=== PATIENT | male | born 1965 | race Caucasian/White ===

== ENCOUNTER 2017-12-07 13:23 | Emergency (ER) | payer OTHER ==
[~2017-12-07] VITALS: Ht 190.5 cm; Wt 90.7 kg
[2017-12-07 13:50] LABS: BASOPHILS ABSOLUTE AUTO 0.06 K/mm3 (0.00-0.23); BASOPHILS PERCENT AUTO 1 % (0-2); EOSINOPHILS ABSOLUTE AUTO 0.16 K/mm3 (0.00-0.68); EOSINOPHILS PERCENT AUTO 3 % (0-6); Hemoglobin 16.1 g/dL (13.5-17.5); IMMATURE GRAN ABSOLUTE AUTO 0.02 K/mm3 (0.00-0.10); IMMATURE GRAN PERCENT AUTO 0 % (0-1); LYMPHOCYTES ABSOLUTE AUTO 2.65 K/mm3 (0.84-5.20); LYMPHOCYTES PERCENT AUTO 42 % (21-46); MONOCYTES ABSOLUTE AUTO 0.55 K/mm3 (0.16-1.47); MONOCYTES PERCENT AUTO 9 % (4-13); Mean Corpuscular HGB 30.1 pg (26.0-34.0); Mean Corpuscular HGB Conc 33.5 g/dL (31.5-36.5); Mean Corpuscular Volume 90 fL (80-100); Mean Platelet Volume 8.9 fL (9.1-12.4); NEUTROPHILS ABSOLUTE AUTO 2.89 K/mm3 (1.96-9.15); NEUTROPHILS PERCENT AUTO 46 % (41-73); Platelet Count 268 K/mm3 (150-400); RDW Coefficient Variation 11.9 % (11.7-14.2); RDW Standard Deviation 38.5 fL (35.1-46.3); Red Blood Cell Count 5.34 M/mm3 (4.30-5.90); White Blood Cell Count 6.33 K/mm3 (4.00-11.30)
[2017-12-07 14:08] LABS: Alanine Aminotransfer (ALT/SGP 50 U/L (12-78); Albumin/Globulin Ratio 1.1 (0.8-1.8); Alk Phos 89 U/L (50-136); Anion Gap 8 mmol/L (6-16); Aspartate Aminotrans (AST/SGOT 23 U/L (12-37); Bilirubin, Total 0.3 mg/dL (0.1-1.0); Blood Urea Nitrogen 10 mg/dL (8-24); Bun/Creatinine Ratio 10.5 (12.0-20.0); CO2, Blood 26 mmol/L (21-32); Calcium, Blood 8.8 mg/dL (8.5-10.1); Chloride, Blood 108 mmol/L (98-108); Creatinine, Blood 0.95 mg/dL (0.60-1.20); Globulin, Blood 3.6 g/dL (2.2-4.0); Glomerular Filtration Rate >60 (60-); Glucose, Blood 118 mg/dL (70-99); Sodium, Blood 142 mmol/L (136-145); Total Protein, Blood 7.6 g/dL (6.4-8.2); Troponin I <0.015 ng/mL (0.000-0.040)
[2017-12-07 14:48] LABS: Source, Urine Clean Catch
[2017-12-07 14:51] LABS: Appearance, Urine Clear (Clear); Bilirubin, Urine Neg (Neg); Blood, Urine 1+ (Neg); Color, Urine Yellow (P-Yellow); Glucose Qualitative, Urine Neg (Neg); Ketones, Urine Neg (Neg); Leukocyte Esterase, Urine Neg (Neg); Nitrite, Urine Neg (Neg); Protein, Urine Neg (Neg); Urobilinogen, Urine NORM (Normal)
[2017-12-07 15:05] LABS: Bacteria Few /hpf; Red Blood Cells, Urine 0-2 /hpf (0-2); Squamous Epithelial Cells Not Seen /hpf (Few); White Blood Cells, Urine 0-2 /hpf (0-5)
[2017-12-07] MEDS ORDERED: BUDE6HFA INH ×2 (15:07→15:19)
[2017-12-07] MEDS ORDERED: ALBU90OI61 INH (15:08)
[2017-12-07] MEDS ORDERED: CLARITIN-D 121 EACH PO (15:08)
[2017-12-07] MEDS ORDERED: ALBU90OI INH (15:19)
== END 2017-12-07 16:34 | disposition home or self-care (01) ==
LOC: ER 13:23
PROVIDERS: Emergency Medicine
DX: R07.9 Chest pain, unspecified (principal); J44.1 Chronic obstructive pulmonary disease with (acute) exacerbation; F17.200 Nicotine dependence, unspecified, uncomplicated; Z88.5 Allergy status to narcotic agent; Z79.899 Other long term (current) drug therapy
CPT/HCPCS: 71046; 80053; 81001; 84484; 85025; 93005; 93010; 94640; 99284; J3301

== ENCOUNTER 2018-02-11 09:57 | Day surgery (SDC) | payer OTHER ==
[~2018-02-11] VITALS: Ht 188 cm; Wt 82.8 kg
[~2018-02-11 09:57] MED LIST: ALBU90OI INH; ALBU90OI61 INH; AMIT10 PO; BUDE6HFA INH; CENTRUM MEN'S1 EACH PO; CLARITIN-D 121 EACH PO; DEXL60CA3 PO; MONT10T PO; Symbicort 16010.2 GM INH; VALA500 PO
== END 2018-02-11 13:33 | disposition home or self-care (01) ==
LOC: ORSCSDS 09:57
PROVIDERS: Student in an Organized Health Care Education/Training Program
PROC: 0DB58ZX Excision of Esophagus, Via Natural or Artificial Opening Endoscopic, Diagnostic (ICD-10-PCS; principal; 2018-02-11 11:15)
PROC: 0DBL8ZX Excision of Transverse Colon, Via Natural or Artificial Opening Endoscopic, Diagnostic (ICD-10-PCS; principal; 2018-02-11 11:15)
PROC: 0DB98ZX Excision of Duodenum, Via Natural or Artificial Opening Endoscopic, Diagnostic (ICD-10-PCS; principal; 2018-02-11 11:15)
PROC: 0DB68ZX Excision of Stomach, Via Natural or Artificial Opening Endoscopic, Diagnostic (ICD-10-PCS; principal; 2018-02-11 11:15)
PROC: 0DBP8ZX Excision of Rectum, Via Natural or Artificial Opening Endoscopic, Diagnostic (ICD-10-PCS; principal; 2018-02-11 11:15)
DX: K21.9 Gastro-esophageal reflux disease without esophagitis (principal); K22.70 Barrett's esophagus without dysplasia; K29.80 Duodenitis without bleeding; Z80.0 Family history of malignant neoplasm of digestive organs; Z12.11 Encounter for screening for malignant neoplasm of colon; Z86.010 Personal history of colon polyps; D12.3 Benign neoplasm of transverse colon; K62.1 Rectal polyp; J44.9 Chronic obstructive pulmonary disease, unspecified; F17.210 Nicotine dependence, cigarettes, uncomplicated; Z79.899 Other long term (current) drug therapy
CPT/HCPCS: J7120

== ENCOUNTER 2018-08-12 06:47 | Day surgery (SDC) | payer OTHER ==
[~2018-08-12] VITALS: Ht 188 cm; Wt 88.2 kg
[~2018-08-12 06:47] MED LIST changes: +Alaway10 ML BOTHEYES; +Omeprazole20 M1 PO
--- NOTE | 2018-08-12 09:00 | NUR ---
08/12/18 0900 Miriam Blue 0821- HAD TO CHANGE SCOPE BECAUSE IT WAS NOT FUNCTIONING PROPERLY. PT STARTED VOMITING EMESIS AND HAD THICK SECRETIONS. SUCTION WAS USED AND OXYGEN WAS TURNED UP. PT O2 SATS DROPPED TO 86%. HE CONTINUED TO COUGH AND A BAG MASK WAS APPLIED. MEDICATION WAS STOPPED AT 0821 BUT PT WAS GIVEN ROBINOL AND ONDANSETRON ORDERED, SEE RECORD. ADDITIONAL HELP WAS IN THE ROOM, TAY QUICK AXA. PT O2 SATS AT BASELINE WERE 97-98%, HE WAS REMAINING AT 91-92% ON ROOM AIR, HIS O2 SATS WITH BAG MASK WERE 94-95%. DR US WANTED TO PROCEED WITH UPPER ENDOSCOPY, DR ANTOINE WAS CALLED IN TO REVIEW THE CASE. HE SAID FOR PT SAFETY WE SHOULD NOT PROCEED WITH THE CASE. PT WANTED TO PROCEED WITH COLONOSCOPY BUT DUE TO DR ANTOINE'S RECOMMENDATION NO SEDATION WAS GIVEN, PT CONSENTED TO PROCEED WITH COLONOSCOPY.
--- NOTE | 2018-08-12 11:09 | NUR ---
08/12/18 1109 Alisha Purdy LATE ENTRY: DR HERNANDEZ IN TO SEE PT, NO ORDERS GIVEN FOR ASPERATION PROTOCOL, DR HERNANDEZ OK'S PT TO HAVE CLEAR FLUIDS TODAY, SOFT DIET TOMORROW AND REGULAR DIET ON THIRD DAY DUE TO HAVING CLIPS PLACED. NO ADDITIONAL ORDERS. PT UP DRINKING FLUIDS AND TALKING TO .
== END 2018-08-12 11:22 | disposition home or self-care (01) ==
LOC: ORSCSDS 06:47
PROVIDERS: Student in an Organized Health Care Education/Training Program
PROC: 0DBM8ZX Excision of Descending Colon, Via Natural or Artificial Opening Endoscopic, Diagnostic (ICD-10-PCS; principal; 2018-08-12 08:00)
PROC: 0DB58ZX Excision of Esophagus, Via Natural or Artificial Opening Endoscopic, Diagnostic (ICD-10-PCS; principal; 2018-08-12 08:00)
PROC: 0DBL8ZX Excision of Transverse Colon, Via Natural or Artificial Opening Endoscopic, Diagnostic (ICD-10-PCS; principal; 2018-08-12 08:00)
PROC: 0DB98ZX Excision of Duodenum, Via Natural or Artificial Opening Endoscopic, Diagnostic (ICD-10-PCS; principal; 2018-08-12 08:00)
PROC: 0DBK8ZX Excision of Ascending Colon, Via Natural or Artificial Opening Endoscopic, Diagnostic (ICD-10-PCS; principal; 2018-08-12 08:00)
PROC: 0DB68ZX Excision of Stomach, Via Natural or Artificial Opening Endoscopic, Diagnostic (ICD-10-PCS; principal; 2018-08-12 08:00)
PROC: 0DBP8ZX Excision of Rectum, Via Natural or Artificial Opening Endoscopic, Diagnostic (ICD-10-PCS; principal; 2018-08-12 08:00)
DX: K22.70 Barrett's esophagus without dysplasia (principal); K21.9 Gastro-esophageal reflux disease without esophagitis; K29.80 Duodenitis without bleeding; K29.70 Gastritis, unspecified, without bleeding; Z86.010 Personal history of colon polyps; K62.1 Rectal polyp; D12.3 Benign neoplasm of transverse colon; D12.2 Benign neoplasm of ascending colon; D12.4 Benign neoplasm of descending colon; K57.30 Diverticulosis of large intestine without perforation or abscess without bleeding; J44.9 Chronic obstructive pulmonary disease, unspecified; F17.210 Nicotine dependence, cigarettes, uncomplicated
CPT/HCPCS: 88305; 88342; J0171; J0330; J1980; J2250; J2405; J3010; J7120

== ENCOUNTER 2019-03-21 12:20 | Day surgery (SDC) | payer OTHER ==
[~2019-03-21] VITALS: Ht 188 cm; Wt 84.4 kg
[2019-03-21] MEDS ORDERED: DEXL60CA3 (12:47)
--- NOTE | 2019-03-21 13:15 | NUR ---
03/21/19 1315 Oralia Garland O2 10L VIA POM MASK
== END 2019-03-21 14:55 | disposition home or self-care (01) ==
LOC: ORSCSDS 12:20
PROVIDERS: Student in an Organized Health Care Education/Training Program
PROC: 0DBK8ZX Excision of Ascending Colon, Via Natural or Artificial Opening Endoscopic, Diagnostic (ICD-10-PCS; principal; 2019-03-21 14:00)
PROC: 0DB58ZX Excision of Esophagus, Via Natural or Artificial Opening Endoscopic, Diagnostic (ICD-10-PCS; principal; 2019-03-21 14:00)
PROC: 0DB68ZX Excision of Stomach, Via Natural or Artificial Opening Endoscopic, Diagnostic (ICD-10-PCS; principal; 2019-03-21 14:00)
PROC: 0DBM8ZX Excision of Descending Colon, Via Natural or Artificial Opening Endoscopic, Diagnostic (ICD-10-PCS; principal; 2019-03-21 14:00)
PROC: 0DBL8ZX Excision of Transverse Colon, Via Natural or Artificial Opening Endoscopic, Diagnostic (ICD-10-PCS; principal; 2019-03-21 14:00)
DX: K22.70 Barrett's esophagus without dysplasia (principal); K21.9 Gastro-esophageal reflux disease without esophagitis; Z12.11 Encounter for screening for malignant neoplasm of colon; Z80.0 Family history of malignant neoplasm of digestive organs; Z86.010 Personal history of colon polyps; D12.2 Benign neoplasm of ascending colon; D12.4 Benign neoplasm of descending colon; K44.9 Diaphragmatic hernia without obstruction or gangrene; K57.30 Diverticulosis of large intestine without perforation or abscess without bleeding; Z79.899 Other long term (current) drug therapy; J44.9 Chronic obstructive pulmonary disease, unspecified; F17.210 Nicotine dependence, cigarettes, uncomplicated
CPT/HCPCS: 88305; J2250; J2405; J2704; J7120

== ENCOUNTER 2020-09-28 06:13 | Day surgery (SDC) | payer MEDICARE, OTHER ==
[~2020-09-28] VITALS: Ht 188 cm; Wt 83.9 kg
[~2020-09-28 06:13] MED LIST changes: +AMOCLA875 PO; +FLUT1DIS2 INH; +PREG25 PO
--- NOTE | 2020-09-28 06:26 | NUR ---
Ambulatory in Day Surgery. Surgical site prepped with 2% Chlorhexidine cloth wipe. History, Chart, Medications and Allergies reviewed before start of procedure. Patient States Post-Procedure ride home has been arranged.
--- NOTE | 2020-09-28 12:04 | NUR ---
5 MG IV VALIUM WASTED WITH LESA CARLOS RN
--- NOTE | 2020-09-28 12:57 | NUR ---
PT DENIES NAUSEA p SNACK AND PO FLUIDS. PAIN LEVEL A 3/10. GIVEN RX AND DC INSTRUCTIONS. PT VERBALIZES AN UNDERSTANDING. NO QUESTIONS. IV DC'D X 2, CATH INTACT AND PRESSURE DRESSING APPLIED. PT DRESSES s DIFFICULTY. INCISIONAL SITE X 3 CDI, GAUZE CDI. OTD IN NAD VIA WC, ESCORTED BY VOLUNTEER. SAFE RIDE HOME AWAITING.
== END 2020-09-28 23:11 | disposition home or self-care (01) ==
LOC: ORSCMMR 06:13 → ORD 07:30 → ORSCMMR 23:11
PROVIDERS: Surgery
PROC: 0WUF4JZ Supplement Abdominal Wall with Synthetic Substitute, Percutaneous Endoscopic Approach (ICD-10-PCS; principal; 2020-09-28 07:30)
PROC: 0WUF0JZ Supplement Abdominal Wall with Synthetic Substitute, Open Approach (ICD-10-PCS; principal; 2020-09-28 07:30)
PROC: 8E0W4CZ Robotic Assisted Procedure of Trunk Region, Percutaneous Endoscopic Approach (ICD-10-PCS; principal; 2020-09-28 07:30)
PROC: 0YU64JZ Supplement Left Inguinal Region with Synthetic Substitute, Percutaneous Endoscopic Approach (ICD-10-PCS; principal; 2020-09-28 07:30)
PROC: 0WQF0ZZ Repair Abdominal Wall, Open Approach (ICD-10-PCS; principal; 2020-09-28 07:30)
DX: K40.90 Unilateral inguinal hernia, without obstruction or gangrene, not specified as recurrent (principal); K43.9 Ventral hernia without obstruction or gangrene; K42.9 Umbilical hernia without obstruction or gangrene; J44.9 Chronic obstructive pulmonary disease, unspecified; Z87.891 Personal history of nicotine dependence; Z79.899 Other long term (current) drug therapy
CPT/HCPCS: 49650; 49652; S2900; A9270; C1781; J0171; J0690; J1100; J1885; J2250; J2405; J2704; J3010; J3360; J7120